=== PATIENT | female | born 1960 | race Caucasian/White ===

== ENCOUNTER 2023-10-08 16:53 | Emergency (ER) | payer OTHER, SELFPAY ==
--- NOTE | ~2023-10-08 | US_ITS ---
EXAMINATION: US VENOUS ULTRASOUND WITH DOPPLER LOWER EXTREMITY, LEFT CLINICAL INFORMATION: Leg pain, swelling COMPARISON: None available. TECHNIQUE: Ultrasound of the deep veins is performed from the hip to the calf with compression sonography and color and pulse Doppler assessment. Spectral analysis with color-flow imaging is performed. FINDINGS: There is normal venous compression and respiratory variation and augmented flow. The visualized common femoral vein, superficial femoral vein, profunda femoral vein, popliteal vein, and the trifurcation region shows no evidence of deep venous thrombosis. There is no significant popliteal fossa cyst. If the patient's symptoms persist, followup ultrasound in 5 days 7 days might be of value to exclude proximal propagation from a non-visualized calf vein. There is soft tissue swelling and heterogeneous echotexture possibly edema in the area of bone graft taken from the lateral ankle/heel. US/US venous duplex LE LT IMPRESSION: No DVT demonstrated in the left lower extremity.
--- NOTE | 2023-10-08 17:13 | ED_ITS ---
HPI - General Adult General Chief complaint: Extremity Injury, Lower Stated complaint: Blood clot in leg? sent by Time Seen by Provider: 10/08/23 18:11 Source: patient Mode of arrival: ambulatory Limitations: no limitations History of Present Illness ED Provider: Mayda Castillo PA-C HPI narrative: Patient is a 63 year old assigned female at with a history of a left foot and ankle surgery through [facility] presenting to the emergency department today with persistent left ankle swelling and new onset left ankle pain. Patient states that ever since her surgery she has had persistent left lower leg swelling however, over the last week, she has had sharp pain at the site in the left ankle/foot where they took the bone graft they used elsewhere in her left foot. Patient states that she was seen at [facility] this morning who recommended she come to the ER for a STAT US to rule out blood clot and to get an MRI on Wednesday10/11/2023. Patient denies any dizziness, lightheadedness, abdominal pain, nausea, vomiting, fever, chills, blurry vision, double vision, loss of vision, chest pain, difficulty breathing, shortness of breath, back pain, night sweats, pain with urination, increased urinary frequency, increased urinary urgency, blood in her urine or stool, syncope or a near syncopal episode, recent trauma or falls, bowel incontinence, bladder incontinence, or any other complaints at this time. Onset (ago): week(s) (1) Location: left and lower extremity Severity: mild Severity scale (1-10): 4 Quality: aching and constant Pain Consistency: constant Relieving factors: immobilization Exacerbating factors: other (weight bearing) Associated symptoms: denies other symptoms Treatments prior to arrival: other (walking boot, ice packs, elevation) Related Data Allergies Allergy/AdvReac Type Severity Reaction Status Date / Time amoxicillin Allergy Hives Verified 10/08/23 17:22 Sulfa (Sulfonamide Allergy Anaphylaxis Verified 10/08/23 17:22 Antibiotics) Review of Systems Constitutional: Constitutional: Reports no additional constitutional complaints, Denies chills, Denies fever(s) and Denies night sweats Eyes: Eyes: Reports no additional eye complaints, Denies blurry vision, Denies change in vision, Denies diplopia, Denies eye discharge, Denies loss of vision and Denies eye pain ENT: Denies dizziness Cardiovascular: Cardiovascular: Reports no additional cardiovascular complaints, Denies chest pain, Denies lightheadedness, Denies Loss of Consciousness and Denies dyspnea Respiratory: Respiratory: Reports no additional respiratory complaints and Denies dyspnea Gastrointestinal: Gastrointestinal: Reports no additional gastrointestinal complaints, Denies abdominal pain, Denies melena, Denies hematochezia, Denies c hange in bowel habits and Denies change in stool character Genitourinary: Genitourinary: Denies hematuria, Denies urinary frequency, Denies dysuria, Denies urinary incontinence, Denies urinary hesitancy and Denies urinary urgency Musculoskeletal: Musculoskeletal: Reports no additional musculoskeletal complaints, Denies numbness and Denies tingling Comments: left lower leg swelling left lateral foot and ankle pain Neurologic: Denies dizziness, Denies loss of vision, Denies numbness and Denies tingling Psychiatric: Psychiatric: Reports no additional psychiatric complaints Endocrine: Endocrine: Reports no additional endocrine complaints Hematologic/Lymphatic: Hematologic/Lymphatic: Reports no additional hematologic/lymphatic complaints Allergic/Immunologic: Allergic/Immunologic: Reports no additional allergic/immunologic complaints [facility] Past Medical History Attestation statement: The following information was validated with the patient. Source: old records reviewed and nursing notes reviewed Social History Social History Advance Directives: No Advance Directives Information Provided: No Physical Exam ED Vital Signs: Vital Signs - 24 hr 10/08/23 17:16 Temperature 98.3 F Pulse Rate 68 Respiratory Rate 16 Blood Pressure 152/71 H Pulse Oximetry 98 Oxygen Delivery Method Room Air BMI result Body Mass Index 28.3 Const General: cooperative, no acute distress, alert and awake Nutritional Appearance: well nourished Orientation/consciousness: patient oriented x3 Limitations: no limitations [facility] Head: Yes normal to inspection and Yes atraumatic Ears: hearing grossly normal bilaterally and external ears normal General nose exam: Normal external nose present, no nasal discharge noted and no epistaxis Face and sinus: Yes normal facial exam, No abrasion and No laceration Mouth: Normal oral and palatal mucosa present, no drooling and no muffled voice Eyes General: appearance normal, both eyes and all related structures Periorbital: periorbital findings normal Eyelids: Yes eyelids normal Conjunctivae: conjunctivae normal Pupils: Equal, round and reactive pupils present EOM: EOMs intact bilaterally Neck Neck: Yes normal visual inspection, Yes full ROM and Yes no lymphadenopathy Chest Chest palpation & inspection: normal inspection of the chest Resp Effort & Inspection: normal respiratory effort and able to speak in complete sentences GI Inspection: Yes normal to inspection Neuro General: patient oriented x3 and moves all extremities Cranial nerves: Yes Equal, round and reactive pupils present Cognition (Neuro): normal cognition Extrem Other: left lower extremity swelling pain with palpation of the left lateral foot and ankle mild warmth to the left lateral ankle General: Yes full ROM and Yes capillary refill normal Psych Appearance: grossly normal Mental Status: mental status grossly normal Affect: normal affect Attitude: cooperative Thought process: Normal thought process present Thought content: Normal thought content present Insight: Good insight present (Psych) Course Course Course Narrative: This is an RME performed by Dominic Pérez CNP: Additional HPI, ROS, PE not included below will be deferred to primary provider. Patient is a 63-year-old female who was followed by [facility] in April of 2023 she underwent Lapidus bunionectomy, 2nd TMT arthrodesis, MIS osteotomy and calcaneal bone graft; she was attempting to get an outpatient ultrasound today but was unable to be seen anywhere, she was advised to come to the closest emergency department for venous duplex ultrasound to rule out DVT as over the past week she has been experiencing severe heel pain swelling to the foot/leg with increasing size. They also have concern for a fracture evidence, she is yesica iting an outpatient MRI but was placed back in an orthopedic boot Medical Decision Making Medical Decision Making MDM Narrative: Patient is a 63 year old assigned female at with a history of recent left foot and ankle surgery presenting to the emergency department today with persistent left lower leg swelling and left lateral foot pain. Patient's physical exam was as noted in the physical exam portion of this note. Patient's left lower leg US showed no acute process / DVT. I explained my physical exam findings as well as all test results to the patient. I answered all questions asked by the patient. I stressed the importance of the patient taking her medication as directed (either prescribed or as the over the counter packaging recommends). I stressed the importance of the patient following up with her primary care provider and with [facility]. I stressed the importance of the patient going to her outpatient MRI scheduled on 10/11/2023. I stressed the importance of the patient returning to the emergency department immediately if her symptoms were to worsen or if she were to develop any dizziness, shortness of breath, difficulty breathing, chest pain, blurry vision, loss of vision, nausea, vomiting, abdominal pain, fever, chills, back pain, or any other complaints. Patient verbalized agreement and understanding with this treatment plan and discharge. Patient was provided a printed copy of this report, her US results, and a disc of her imaging performed today. Differential Diagnosis Differential Diagnoses: The differential diagnosis associated with the presentation includes DVT Dependent edema Admission/Observation Consideration of admission/observation: Escalation of care including admission/observation considered Patient would have been admitted to the hospital had her work up had any findings where hospital admission was appropriate and her clinical presentation warranted hospital admission. Independent Interpretation I performed an independent interpretation of an: Ultrasound Interpretation: My interpretation is in agreement with the radiologist's impression of this imaging study. EXAMINATION: US VENOUS ULTRASOUND WITH DOPPLER LOWER EXTREMITY, LEFT CLINICAL INFORMATION: Leg pain, swelling COMPARISON: None available. TECHNIQUE: Ultrasound of the deep veins is performed from the hip to the calf with compression sonography and color and pulse Doppler assessment. Spectral analysis with color-flow imaging is performed. FINDINGS: There is normal venous compression and respiratory variation and augmented flow. The visualized common femoral vein, superficial femoral vein, profunda femoral vein, popliteal vein, and the trifurcation region shows no evidence of deep venous thrombosis. There is no significant popliteal fossa cyst. If the patient's symptoms persist, followup ultrasound in 5 days 7 days might be of value to exclude proximal propagation from a non-visualized calf vein. There is soft tissue swelling and heterogeneous echotexture possibly edema in the area of bone graft taken from the lateral ankle/heel. US/US venous duplex LE LT IMPRESSION: No DVT demonstrated in the left lower extremity. Dictated By: Chilo Salamanca MD Signed By: Electronically signed by Chilo Salamanca MD 10/08/23 2661 Radiology Impression Discussion of test interpretation with radiology: I have reviewed the radiologist's reading. Discharge Plan Discharge Clinical Impression: Edema of left lower leg, Ankle pain, left Patient Disposition: Home, Self-Care Instructions: Leg Edema (ED) Additional Instructions: Follow up with your primary care provider and [facility]. Return to the emergency department immediately if your symptoms worsen or if you develop any dizziness, shortness of breath, difficulty breathing, chest pain, blurry vision, loss of vision, nausea, vomiting, abdominal pain, fever, chills, back pain, or any other complaints. Referrals: Milo Montesinos NP [Primary Care Provider] - Print Language: Ukrainian
[2023-10-08 17:16] VITALS: BP 152/71; PULSE 68; RESP 16; TEMP 36.8; O2SAT 98; BMI 28.3
[2023-10-08 18:59] VITALS: BP 143/75; PULSE 68; RESP 16; TEMP 36.7; O2SAT 98
[2023-10-08 19:07] VITALS: BP 143/75; PULSE 68; RESP 16; TEMP 36.7; O2SAT 98
== END 2023-10-08 19:07 | disposition home or self-care (01) ==
PROVIDERS: Emergency Provider Emergency Medicine; PCP Nurse Practitioner Family
DX: R60.0 Localized edema (principal); M25.572 Pain in left ankle and joints of left foot; M79.662 Pain in left lower leg
CPT/HCPCS: 93971; 99282; 99284